=== PATIENT | male | born 1980 | race American Indian/Alaskan Native ===

== ENCOUNTER 2018-08-31 20:23 | Emergency (ER) | payer SELFPAY ==
[2018-08-31 20:59] VITALS: RESP 16; O2SAT 98
[2018-08-31] MEDS ORDERED: Amoxicillin-Clav 875-125 mg Tab PO STA (21:05)
[2018-08-31] MEDS ORDERED: Amoxicillin-Clav 875-125 mg Tab PO ONE (21:22)
--- NOTE | 2018-08-31 21:31 | C.PDOC ---
History Of Present Illness The patient reports 2 day history of left lower swelling and pain to the gum. Patient reports that several weeks ago the left lower 2nd pre molar cracked and now has developed gradual pain and swelling to the area. denies fever, weakness, numbness, trauma. Time Seen by Provider: 08/31/18 20:45 Chief Complaint (Nursing): Dental Pain History Per: Patient History/Exam Limitations: no limitations Onset/Duration Of Symptoms: Days (2) Quality: Positive for: Aching Recent travel outside of the [place]: No Past Medical History Vital Signs: Last Vital Signs Temp 100 F H 08/31/18 20:44 Pulse 98 H 08/31/18 20:44 Resp 16 08/31/18 20:44 BP 136/96 H 08/31/18 20:44 Pulse Ox 98 08/31/18 20:44 - Medical History PMH: Seizures Family History: States: Unknown Family Hx - Social History Hx Alcohol Use: Yes Hx Substance Use: No - Immunization History Hx Tetanus Toxoid Vaccination: No Hx Influenza Vaccination: No Hx Pneumococcal Vaccination: No Review Of Systems Constitutional: Negative for: Fever ENT: Positive for: Mouth Pain, Mouth Swelling Neurological: Negative for: Weakness, Numbness Physical Exam - Physical Exam Appears: Non-toxic Skin: Normal Color, Warm Head: Atraumatic, Normacephalic, Other (Left lower jaw swollen, +abscess, no area of fluctuance) Eye(s): bilateral: Normal Inspection Ear(s): Bilateral: Normal Nose: Normal Oral Mucosa: Moist, No Trismus Tongue: Normal Appearing, No Swelling Lips: Normal Appearing, No Swelling Gingiva: Normal Appearing Throat: Normal, No Erythema, No Exudate Neck: Normal, No Midline Cervical Tenderness, No Paracervical Tenderness, Supple, No Other (Swelling) Neurological/Psych: Oriented x3, Normal Speech ED Course And Treatment O2 Sat by Pulse Oximetry: 98 (Room air) Pulse Ox Interpretation: Normal Medical Decision Making Medical Decision Making: Tramadol administered for pain, patient resting comfortably in no acute distress, vistals are stable, will start on augmentin and advise to follow up with PMD. Disposition - Disposition Referrals: [facility] [Outside] Disposition: HOME/ ROUTINE Disposition Time: 21:30 Condition: STABLE Additional Instructions: Follow up with the medical doctor within 1-2 days. Return if worsened. Prescriptions: Amoxicillin/Clavulanate [Augmentin 875 MG-125 MG] 1 tab PO BID #14 tab traMADol [Ultram] 50 mg PO Q6 PRN #10 tab PRN Reason: Pain Instructions: Tooth Abscess (DC) Forms: [employer] (Norwegian) - Clinical Impression Clinical Impression: Dental abscess, Dental caries - PA / [employer]SE[employer] / Resident Statement MD/DO has reviewed & agrees with the documentation as recorded. - Scribe Statement The provider has reviewed the documentation as recorded by the Scribfermin Busch All medical record entries made by the Casperibfermin were at my direction and personally dictated by me. I have reviewed the chart and agree that the record accurately reflects my personal performance of the history, physical exam, medical decision making, and the department course for this patient. I have also personally directed, reviewed, and agree with the discharge instructions and disposition.
[2018-08-31 21:44] VITALS: BP 138/83; PULSE 88; TEMP 98.2
== END 2018-08-31 21:45 | disposition home or self-care (01) ==
LOC: C.ER 20:23
DX: K04.7 Periapical abscess without sinus (principal); K02.9 Dental caries, unspecified